=== PATIENT | male | born 1975 | race Caucasian/White ===

== ENCOUNTER 2019-04-30 05:56 | Day surgery (SDC) | payer BC ==
[~2019-04-30] VITALS: Ht 182.9 cm; Wt 77.1 kg
[~2019-04-30 05:56] MED LIST: CLARITIN 10 MG10 MG PO; COPAXONE INJ20 MG/ML SQ; MAG-OX 400 MG400 MG PO; PERCOCET 5-3251 TAB PO; PROVIGIL200 MG PO; VITAMIN B COMPLEX PO; ZYRTEC10 MG PO
[2019-04-30 06:22] VITALS: BP 110/63; Ht 182.9 cm; Wt 77.1 kg
[2019-04-30] MEDS ORDERED: FLUTICASONE PRO16 GM NASAL (06:36)
[2019-04-30] MEDS ORDERED: HYDROCODON-ACE1 EAC7 PO (09:12)
== END 2019-04-30 10:42 | disposition home or self-care (01) ==
LOC: D.OPS 05:56 → D.PAN 08:00 → D.OPS 08:00
PROVIDERS: ATTEND Surgery
DX: K43.9 Ventral hernia without obstruction or gangrene (principal)